=== PATIENT | female | born 1995 | race Caucasian/White ===

== ENCOUNTER → 2019-10-25 14:00 | Outpatient (CLI) | payer OTHER, MEDICAID, SELFPAY ==
--- NOTE | 2019-10-25 14:11 | DI.US.S_ITS ---
PROCEDURE: US OB >= 14 WEEKS FETUS INDICATIONS: ANATOMY OUTSIDE/PRIOR DATING DATA: Last menstrual period (LMP): Not known. LMP-based estimated date of delivery (ANNA): Not applicable. First dating scan (date and location): 10/25/19. Estimated date of delivery (ANNA) from first dating scan: 01/15/20. TECHNIQUE: Real-time scanning was performed of the fetus, with image documentation and biometric measurements. COMPARISON: None. FINDINGS: General: A single living intrauterine gestation is present. Presentation: Posterior Placenta: Placental position is vertex, without previa. Amniotic fluid index: 19.5 cm, normal range is 5-24 cm. heart rate: 133 beats per minute. Maternal cervical canal: 3.1 cm long. Normal lower limit is 2.5 cm. biometrics: Biparietal diameter: 27 weeks 6 days Head circumference: 20 weeks and 1 daily Abdominal circumference: 28 weeks 0 days Femur length: 28 weeks 6 days Estimated gestational age from initial scan: not applicable. Composite gestational age from present scan: 28 weeks 2 days Estimated weight and percentile: 1201 g; not applicable Measurement variability for biometric dating: +/- 7 days from 14 weeks to 15 weeks 6 days gestation, +/- 10 days from 16 weeks to 21 weeks 6 days gestation, +/- 2 weeks from 22 weeks to 27 weeks 6 days gestation, +/- 3 weeks for 28 weeks gestation or later. weight reference: 4500 g or EFW >90/95% is considered macrosomia or large for gestational age. EFW <10% is small for gestational age. EFW 5% or less is considered intra-uterine growth restriction. Anatomic survey: Neuro: Ventricles are non-dilated at less than 10 mm. Cisterna magna is normal at 3-11 mm. Cerebellum is normal in size and morphology. Nuchal skin fold: Normal at less than 6 mm between 14-21 weeks gestational age. Face: Nose and lips, facial profile are normal. Spine: No evidence for spina bifida. Heart: 4-chambered heart is present, with normal ventricular outflow tracts. Diaphragm: Diaphragm is intact. Stomach: Left-sided stomach is present. Kidneys: No hydronephrosis. Normal is less than 5 mm in 2nd trimester, less than 7 mm in 3rd trimester. Cord: 3-vessel cord has orthotopic insertion. Bladder: Normal in size. Extremities: All 4 extremities identified. IMPRESSION: 1. Single living intrauterine with ultrasound estimated gestational age of 28 weeks 2 days corresponding to ultrasound ANNA of 01/15/2020. 2. Normal anatomic survey. Dictated by: Marilee Anaya MD, PhD on 10/25/2019 at 15:45 Approved by: Marilee Anaya MD, PhD on 10/25/2019 at 15:47
== END ==
PROVIDERS: Visit Provider Family Medicine
DX: Z36.89 Encounter for other specified antenatal screening (principal); Z3A.28 28 weeks gestation of pregnancy
CPT/HCPCS: 76811

== ENCOUNTER → 2019-11-02 08:08 | Outpatient (CLI) | payer OTHER, MEDICAID, SELFPAY ==
[2019-11-02 10:06] LABS: Appearance Urine UA CLEAR; Bilirubin Urine UA NEGATIVE (NEGATIVE); Color Urine UA YELLOW; Glucose Urine UA NEGATIVE (Negative); Ketones Urine UA 1+ (NEGATIVE); Leukocyte Esterase Urine UA NEGATIVE (NEGATIVE); Nitrite Urine UA NEGATIVE (Negative); Occult Blood Urine UA NEGATIVE (Negative); Protein Urine UA TRACE (Negative); Specific Gravity Urine UA 1.025 (1.000-1.035); Urobilinogen Urine UA 0.2 E.U./dL (0.2)
[2019-11-02 10:08] LABS: pH Urine UA 6.5 (4.5-8.0)
[2019-11-02 10:19] LABS: Add Manual Diff / Slide Review NO; Basophils Absolute Auto 0 /uL (0-100); Basophils Percent Auto 0.4 % (0-2); Eosinophils Absolute Auto 100 /uL (0-450); Eosinophils Percent Auto 1.1 % (2-4); Hematocrit 34.6 % (36-46); Hemoglobin 11.6 g/dL (12.0-16.0); Lymphocytes Absolute Auto 1800 /uL (1100-4500); Lymphocytes Percent Auto 18.5 % (25-40); Mean Corpuscular HGB Conc 33.4 % (30-36); Mean Corpuscular Hemoglobin 27.2 PG (26-34); Mean Corpuscular Volume 81.2 fL (80-100); Monocytes Absolute Auto 700 /uL (0-900); Monocytes Percent Auto 6.8 % (3-14); Neutrophils Absolute Auto 7300 /uL (1500-7000); Neutrophils Percent Auto 73.2 % (50-75); Platelet Count 272 X10^3/uL (150-400); Red Blood Cell Count 4.26 X10^6/uL (4.0-5.2); Red Cell Distribution Width 15.1 % (11.6-14.8); White Blood Cell Count 9.9 X10^3/uL (4.5-11.0)
[2019-11-02 10:35] LABS: GTT (PREG) 1 Hour PP 50gm Dose 130 mg/dL (76-139)
[2019-11-02 11:09] LABS: Hepatitis B Surface Antigen NEGATIVE s/c (NEGATIVE); Rubella Antibody IgG 16.9 IU/mL (>15)
[2019-11-02 11:24] LABS: HIV 1 & 2 Ab/Ag 4th Gen Combo NEGATIVE (NEGATIVE); Hep C Virus Ab w/Reflex Quant NEGATIVE s/c (NEGATIVE)
[2019-11-03 18:00] LABS: RPR Screen Nonreactive (Nonreactive)
== END ==
PROVIDERS: PCP Family Medicine; Visit Provider Family Medicine
DX: Z34.03 Encounter for supervision of normal first pregnancy, third trimester (principal); Z3A.28 28 weeks gestation of pregnancy
CPT/HCPCS: 36415; 80055; 81003; 82950; 86787; 86803; 86850; 86900; 86901; 87086; 87389

== ENCOUNTER → 2019-12-07 12:19 | Outpatient (CLI) | payer OTHER, MEDICAID, SELFPAY ==
[2019-12-07 16:47] LABS: Urine N gonorrhoeae NOT DETECTED
[2019-12-07 16:56] LABS: Urine Chlamydia NOT DETECTED
== END ==
PROVIDERS: PCP Family Medicine; Visit Provider Family Medicine
DX: Z11.3 Encounter for screening for infections with a predominantly sexual mode of transmission (principal); Z11.8 Encounter for screening for other infectious and parasitic diseases; Z34.03 Encounter for supervision of normal first pregnancy, third trimester; Z3A.34 34 weeks gestation of pregnancy
CPT/HCPCS: 87086; 87491; 87591

== ENCOUNTER → 2019-12-21 11:39 | Outpatient (CLI) | payer OTHER, MEDICAID, SELFPAY ==
[2019-12-22 14:55] LABS: Strep Grp B PCR NEG for Grp B Strep
== END ==
PROVIDERS: PCP Family Medicine; Visit Provider Family Medicine
DX: Z34.03 Encounter for supervision of normal first pregnancy, third trimester (principal); Z3A.36 36 weeks gestation of pregnancy
CPT/HCPCS: 87653

== ENCOUNTER 2020-01-05 15:14 | Emergency (ER) | payer OTHER, MEDICAID, SELFPAY ==
[2020-01-05 15:28] VITALS: BP 197/94; PULSE 84; RESP 18; TEMP 37; O2SAT 99; BMI 45.2
--- NOTE | 2020-01-05 15:47 | ED_ITS ---
HPI - Wound/Laceration General Chief Complaint: Wound/Laceration Stated Complaint: right knee wound from a fall. Time Seen by Provider: 01/05/20 15:18 Source: patient Mode of arrival: Family Vehicle Limitations: no limitations History of Present Illness HPI narrative: 24-year-old female here for evaluation of a laceration to her right knee. She was hiking where she tripped and fell forward landing on her right knee. There was no loss of consciousness. They went to arrange or station. Topical antibiotic ointment was placed over the wound she was brought to the emergency department. She is in her 3rd trimester . Did not hit her belly. No loss of fluid. No vaginal bleeding. Is up-to-date on tetanus. Related Data Home Medications Medication Instructions Recorded Confirmed prenat.vits,erwin,[id number] 1 tab PO DAILY 10/25/19 01/04/20 Allergies Allergy/AdvReac Type Severity Reaction Status Date / Time bee stings Allergy Intermediate Major Uncoded 01/05/20 15:33 swelling and pain for days Review of Systems Constitutional Constitutional: Denies fever(s) and Denies headache(s) ENT Ears, Nose, Mouth, and Throat: Denies headache(s) and Denies disequilibrium Musculoskeletal Musculoskeletal: Denies myalgias and Denies arthralgias Integumentary/Breasts Comments: Laceration to right knee Neurologic Neurologic: Denies headache(s), Denies paresthesias and Denies disequilibrium Hematologic/Lymphatic Hematologic/Lymphatic: Denies easy bleeding and Denies easy bruising Patient History Medical History Carpal tunnel syndrome, bilateral (Acute ~2016) Migraine (Acute) Social anxiety disorder (Acute) Family History (Updated 10/25/19 @ 15:49 by Briseyda Olvera RN) Father Appendicitis PTSD (post-traumatic stress disorder) Grandfather Diabetes mellitus Grandmother No problems noted. Grandmother No problems noted. 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[employer]) current occupational exposures/hazards: No special renetta needs: No Smoking Status: Never smoker second hand exposure: Yes (co-workers ) alcohol intake: former ( 1-2 /week) substance use type: does not use and marijuana (some marijuana ) Smoking Status: Never smoker alcohol intake frequency: 0-2 drinks per day Substance Use Type: does not use Exam Initial Vital Signs Initial Vital Signs: Vital Signs Temperature 98.6 F 01/05/20 15:28 Pulse Rate 84 01/05/20 15:28 Respiratory Rate 18 01/05/20 15:28 Blood Pressure 197/94 H 01/05/20 15:28 Pulse Oximetry 99 01/05/20 15:28 Const General: cooperative, comfortable, well developed and well groomed Limitations: mental status not altered HENMT Head: normal to inspection and normocephalic Skin Other: Minor abrasions to the left knee. Has a 5 cm laceration just distal to the left patella midline. No active bleeding Extrem Other: Full range of motion of the right knee. Patient able to do a straight leg raise. No patella tendon involvement with range of motion of the right knee through flexion and extension. Psych Appearance: grossly normal and well kempt Procedures Laceration Repair Laceration 1: Site: lower extremity Side (If applicable): right Size (cm): 5 Description: linear Depth: simple, single layer Local Anesthetic: lidocaine 2% Amount of anesthesia used (mL): 8 Pre-repair: wound explored, irrigated extensively and deep structures intact Skin layer closed with: nylon Size (cm): 3-0 Number of sutures: 7 Technique: simple, interrupted Course Orders Ordered: Discontinued Medications Bacitracin (Bacitracin) 1 applic TOP NOW ONE Stop: 01/05/20 15:47 Last Admin: 01/05/20 15:54 Dose: 1 applic Documented by: DIETER Lidocaine/Sodium Bicarbonate (Buffered Lidocaine 10 Ml Syr) 10 ml INJ NOW ONE Stop: 01/05/20 15:24 Last Admin: 01/05/20 15:54 Dose: 10 ml Documented by: DIETER Vital Signs Vital signs: Vital Signs - 8 hr 01/05/20 15:28 01/05/20 16:19 Temperature 98.6 F Pulse Rate 84 83 Respiratory Rate 18 18 Blood Pressure 197/94 H Blood Pressure [Right Arm] 168/83 H Pulse Oximetry 99 100 MDM - Wound/Laceration MDM Narrative Medical decision making narrative: She is neurovascularly intact. The wound was superficial in does not involve the patella tendon. It was contaminated with dirt however this was removed with extensive washing with a surgical sponge and soap. Patient is up-to-date on tetanus. Wound was closed as described above. She was placed in an Giuseppe bandage because the location and the stress placed on the stitches. She was given care instructions and return precautions. She expressed understanding and agreement. Patient found to be hypertensive. Unsure if this is secondary to preeclampsia given her gestational age versus stress from the situation that brought her to the emergency department. I did discuss the case with who is supervisor agricultural education from the patient's primary provider recommended sending the patient over to the Center for continued evaluation. I did discuss this with the patient. She will be discharged from the emergency department symptom the Center. She expressed understanding and agreement. Discharge Plan Departure Patient Disposition: Home Clinical Impression: Laceration Qualifiers: Weeks of gestation: 39 weeks Qualified Code(s): Z3A.39 - 39 weeks gestation of Hypertension Qualifiers: Hypertension type: unspecified Qualified Code(s): I10 - Essential (primary) hypertension Discharge Date/Time: 01/05/20 16:24 Instructions: DI for Laceration Repair Activity Restrictions/Additional Instructions: Leave the bandage on for the next 24 hours. After that you can take the bandage off. Use the Giuseppe bandage to remind you not to excessively bend her knee has this will place strain on the stitches. After 24 hours you can shower like normal. You can use soap and water like normal. I did discuss the case with the on-call OB provider who recommended that you be discharged from the emergency department and go to the Center for further evaluation of your high blood pressure. Prescriptions: No Action prenat.vits,erwin,[id number] Tablet 1 tab PO DAILY RF: 0 Referrals: Chirs Man MD [Primary Care Provider] - ED Sign-out Cosign ED Attending Cosignature Attestation: I was immediately available in the department for consultation. This documentation has been reviewed and I agree with assessment and plan. Supervised by Jorge Dukes DO
[2020-01-05] MEDS: BACITRACIN OINT 0.9 GM PCKT 1 APPLIC TOP (15:54)
[2020-01-05] MEDS: LIDO 1%/SOD BICARB 8.4% (10ML) 10 ML SYRINGE INJ (15:54)
[2020-01-05 16:19] VITALS: BP 168/83; PULSE 83; RESP 18; O2SAT 100
--- NOTE | 2020-01-05 16:22 | PC.NURSE ---
Pt DC from ED and sent to Center for eval of HTN
== END 2020-01-05 16:24 | disposition home or self-care (01) ==
PROVIDERS: Emergency Provider Emergency Medicine; PCP Family Medicine
DX: S81.011A Laceration without foreign body, right knee, initial encounter (principal); I10 Essential (primary) hypertension; Z3A.39 39 weeks gestation of pregnancy; W19.XXXA Unspecified fall, initial encounter

== ENCOUNTER 2020-01-05 16:21 | Inpatient (IN) | payer OTHER, MEDICAID, SELFPAY ==
[2020-01-05 17:02] LABS: Add Manual Diff / Slide Review NO; Basophils Absolute Auto 100 /uL (0-100); Basophils Percent Auto 0.5 % (0-2); Eosinophils Absolute Auto 100 /uL (0-450); Eosinophils Percent Auto 0.8 % (2-4); Hematocrit 36.7 % (36-46); Hemoglobin 11.9 g/dL (12.0-16.0); Lymphocytes Absolute Auto 2500 /uL (1100-4500); Lymphocytes Percent Auto 21.1 % (25-40); Mean Corpuscular HGB Conc 32.5 % (30-36); Mean Corpuscular Hemoglobin 26.5 PG (26-34); Mean Corpuscular Volume 81.6 fL (80-100); Monocytes Absolute Auto 900 /uL (0-900); Monocytes Percent Auto 7.2 % (3-14); Neutrophils Absolute Auto 8400 /uL (1500-7000); Neutrophils Percent Auto 70.4 % (50-75); Platelet Count 227 X10^3/uL (150-400); Red Cell Distribution Width 15.5 % (11.6-14.8); White Blood Cell Count 11.9 X10^3/uL (4.5-11.0)
[2020-01-05 17:12] LABS: Aspartate Aminotransferase 42 IU/L (14-36); BUN Creatinine Ratio 22.8 (6-22); Blood Urea Nitrogen 18 mg/dL (7-17); Estimated Glomerular Filt Rate > 60.0 mL/min (>60); Uric Acid 6.6 mg/dL (2.5-6.2)
[2020-01-05 18:13] LABS: Microalbumi Creatinin Ratio Ur 2168.4 ug/mg CR (<30)
--- NOTE | 2020-01-05 20:01 | P.HPOB_ITS ---
OB HPI History of Present Condition Chief complaint: EVAL OF LABOR Narrative: 24-year-old G1 para 0 estimated due date of 01/12/2020 with LMP and 01/15/2020 with ultrasound at 20 weeks puts her at 39 weeks gestational age. Patient care complicated by late care at approximately 30 weeks struggles with social anxiety. Aftercare initiated 30 weeks patient had routine and close follow-up. Patient has had mildly elevated blood pressure during the low 130s. She has had no significant protein in her urea or signs of headache blurry vision or right upper quadrant pain. This evening patient park walking patient fell and injured her knee requiring sutures and went to the emergency department. During the emergency department visit patient was noted to have elevated blood pressure. Her knee was sutured on the right and was sent to the center for further evaluation. On evaluation of the center patient's blood pressure has been high. Patient does not complaining of any symptoms of headache blurry vision right upper quadrant pain. Patient's blood work showed normal white blood cell count hemoglobin 11.9 hematocrit 36.7 platelet count 227. BUN 18 creatinine 0.79 uric acid 6.6 elevated and AST 42 elevated urine shows 3.99 mg of protein on urine spot. Initial blood work showed serum VDRL nonreactive urine GC chlamydia negative hepatitis-B surface antigen negative hepatitis C negative HIV negative rubella immune varicella immune GBS negative blood type is A positive. Patient has a history of social anxiety disorder. No history of high blood pressure asthma or diabetes she is obese. Family history of PTSD T and diabetes Social history she is she does not currently smoke tobacco occasionally uses marijuana does not currently use alcohol during Evaluation Evaluation Laboratory results: Laboratory Tests 01/05/20 01/05/20 01/05/20 16:50 16:50 Unknown WBC 11.9 H RBC 4.50 Hgb 11.9 L Hct 36.7 MCV 81.6 MCH 26.5 MCHC 32.5 RDW 15.5 H Plt Count 227 Neut % (Auto) 70.4 Lymph % (Auto) 21.1 L [place] % (Auto) 7.2 Eos % (Auto) 0.8 L Baso % (Auto) 0.5 Neut # (Auto) 8400 H Lymph # (Auto) 2500 [place] # (Auto) 900 Eos # (Auto) 100 Baso # (Auto) 100 BUN 18 H Creatinine 0.79 Estimated GFR > 60.0 BUN/Creatinine Ratio 22.8 H Uric Acid 6.6 H AST 42 H Ur Random Microalbumin 399.0 H Urine Creatinine 184.0 Microalb/Creat Ratio 2168.4 H [facility] Medical History Carpal tunnel syndrome, bilateral (Acute ~2016) Migraine (Acute) Social anxiety disorder (Acute) Family History Father Appendicitis PTSD (post-traumatic stress disorder) Grandfather Diabetes mellitus Grandmother No problems noted. Grandmother No problems noted. 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) current occupational exposures/hazards: No special renetta needs: No Smoking Status: Never smoker second hand exposure: Yes (co-workers ) alcohol intake: former ( 1-2 /week) substance use type: does not use and marijuana (some marijuana ) Meds Home Medications and Allergies Home Medications Medication Instructions Recorded Confirmed Type prenat.vits,erwin,[id number]-[id number] 1 tab PO DAILY 10/25/19 01/05/20 History Allergies Allergy/AdvReac Type Severity Reaction Status Date / Time bee stings Allergy Intermediate Major Uncoded 01/05/20 15:33 swelling and pain for days Exam Vital Signs (past 8 hours): . General: Alert no apparent distress. Affect is appropriate. Margarita it is uncomfortable. HEENT: Neck is supple without lymphadenopathy pupils equal round and reactive. Cardio: S1-S2 regular rate and rhythm. Respiratory: Lungs clear to auscultation. Abdomen: Gravid. Extremities: Normal deep tendon reflexes trace edema. [place]: Irregular contractions heart tones: Category 1 reactive strip heart rate average 140 Objective Labs Result Diagrams: 01/05/20 16:50 01/05/20 16:50 Labs: Laboratory Results - last 24 hr 01/05/20 01/05/20 01/05/20 16:50 16:50 Unknown WBC 11.9 H RBC 4.50 Hgb 11.9 L Hct 36.7 MCV 81.6 MCH 26.5 MCHC 32.5 RDW 15.5 H Plt Count 227 Neut % (Auto) 70.4 Lymph % (Auto) 21.1 L [place] % (Auto) 7.2 Eos % (Auto) 0.8 L Baso % (Auto) 0.5 Neut # (Auto) 8400 H Lymph # (Auto) 2500 [place] # (Auto) 900 Eos # (Auto) 100 Baso # (Auto) 100 BUN 18 H Creatinine 0.79 Estimated GFR > 60.0 BUN/Creatinine Ratio 22.8 H Uric Acid 6.6 H AST 42 H Ur Random Microalbumin 399.0 H Urine Creatinine 184.0 Microalb/Creat Ratio 2168.4 H Assessment and Plan Assessment and Plan Assessment and Plan narrative: 24-year-old G1 para 0 39 weeks gestational age with preeclampsia moderate. Patient has elevated uric acid elevated AST elevated blood pressure and protein in her urine patient has no symptoms currently of blurry vision right upper quadrant pain headache and no seizures. Patient has normal platelet count normal hemoglobin and hematocrit normal creatinine. Discussed case with OB care physician on-call Dr. Chao. Reviewed current management recommendations. I elected to not start patient on magnesium at this point. Start IV. Provide IV blood pressure control starting with 10 mg labetalol and then 200 mg of labetalol orally 3 times a day. Provide fentanyl for pain control and relaxation. Her cervix would benefit with the use of Cytotec for induction but she is margarita too much so we will have to proceed with part Pitocin. Recommended starting Pitocin with the patient. To expedite delivery. We will started approximately 4:00 a.m. that will allow for the OR crew to be on standby if baby or patient does not tolerate labor induction.. And then monitor closely baby's progress. We will continue with it to her monitoring externally. We will monitor closely her blood pressure and vitals. Provide blood pressure control. Watch for signs symptoms of neurological defects or progression to eclampsia in mother.
[2020-01-05 20:27] VITALS: BP 190/93; PULSE 90
[2020-01-05] MEDS: LABETALOL 20 MG/4 ML SYRINGE 10 MG IV (20:27)
[2020-01-05 20:32] VITALS: BP 190/93
[2020-01-05 21:38] VITALS: BP 170/93; PULSE 86
[2020-01-05] MEDS: LABETALOL 100 MG TABLET 200 MG PO (21:38)
[2020-01-05] MEDS: fentaNYL 100 MCG/2 ML INJ 25 MCG IV (23:20)
[2020-01-05] MEDS: ACETAMINOPHEN 325 MG TABLET 650 MG PO (23:21)
[2020-01-06] MEDS: OXYTOCIN PREMIX 30 UNIT/500 ML PLAST..BAG IV (03:53)
[2020-01-06] MEDS: LACTATED RINGERS 1,000 ML 100 ML IV ×2 (03:53→13:25)
[2020-01-06] MEDS: fentaNYL 100 MCG/2 ML INJ 25 MCG IV (04:16)
--- NOTE | 2020-01-06 07:15 | PM.PN.1 ---
Subjective Subjective Date Patient Seen: 01/06/20 Time Patient Seen: 07:15 Interval history: Patient did well overnight. Given IV labetalol. And oral labetalol. Blood pressures come down to 11/18/2039. Patient has no symptoms of headache blurry vision right upper quadrant pain. Patient laboratory tests show proteinuria mild AST mild uric acid. Patient margarita too much last evening to do Cytotec. Category 1 heart tracing. Started on Pitocin augmentation of labor at 4:00 a.m. this morning. She is starting to contract a little bit and getting uncomfortable. At 4:00 a.m. cervical exam was 170 and -3. Reviewed treatment care plan with patient and been today. Exam Narrative Exam Narrative: . General: Alert no apparent distress. Affect is appropriate. Margarita it is uncomfortable. HEENT: Pupils equal round and reactive or mucosa is moist Cardio: S1-S2 regular rate and rhythm. Respiratory: Lungs clear to auscultation. Abdomen: Gravid. Extremities: Normal deep tendon reflexes trace edema. [place]: [Margarita regularly every 3-5 minutes with 60 minute contractions moderate and strength.] heart tones: Category 1 heart tracing Objective Labs Result Diagrams: 01/05/20 16:50 01/05/20 16:50 Labs: Laboratory Results - last 24 hr 01/05/20 01/05/20 01/05/20 16:50 16:50 20:30 WBC 11.9 H RBC 4.50 Hgb 11.9 L Hct 36.7 MCV 81.6 MCH 26.5 MCHC 32.5 RDW 15.5 H Plt Count 227 Neut % (Auto) 70.4 Lymph % (Auto) 21.1 L [place] % (Auto) 7.2 Eos % (Auto) 0.8 L Baso % (Auto) 0.5 Neut # (Auto) 8400 H Lymph # (Auto) 2500 [place] # (Auto) 900 Eos # (Auto) 100 Baso # (Auto) 100 BUN 18 H Creatinine 0.79 Estimated GFR > 60.0 BUN/Creatinine Ratio 22.8 H Uric Acid 6.6 H AST 42 H Ur Random Microalbumin Urine Creatinine Microalb/Creat Ratio Blood Type A Positive Antibody Screen Negative 01/05/20 Unknown WBC RBC Hgb Hct MCV MCH MCHC RDW Plt Count Neut % (Auto) Lymph % (Auto) [place] % (Auto) Eos % (Auto) Baso % (Auto) Neut # (Auto) Lymph # (Auto) [place] # (Auto) Eos # (Auto) Baso # (Auto) BUN Creatinine Estimated GFR BUN/Creatinine Ratio Uric Acid AST Ur Random Microalbumin 399.0 H Urine Creatinine 184.0 Microalb/Creat Ratio 2168.4 H Blood Type Antibody Screen Assessment & Plan Assessment & Plan narrative: 24-year-old G1 para 039 weeks late care THC use during GBS negative a positive with moderate preeclampsia with elevation of blood pressure elevation AST elevation uric acid and proteinuria. Patient asymptomatic with headache right upper quadrant pain and blurry vision. Patient margarita too much for Cytotec. Pitocin started 4:00 a.m. this morning. 70% effaced -3 station 1 cm. Category 1 heart tracing. IV labetalol given last night and oral labetalol 200 mg 3 times a day. Continue with ongoing induction. Care will be transferred to on-call physician today as I will be out of the hospital this afternoon.
[2020-01-06 08:52] VITALS: BP 143/76; PULSE 67
[2020-01-06] MEDS: LABETALOL 100 MG TABLET 200 MG PO ×3 (08:52→21:09)
[2020-01-06] MEDS: ACETAMINOPHEN 325 MG TABLET 650 MG PO ×3 (08:55→21:09)
--- NOTE | 2020-01-06 09:47 | PM.OBPNLAB ---
Date/Time Date Patient Seen: 01/06/20 Time Patient Seen: 09:40 Pain Control Pain control: tolerating well Comments: The patient reports mildly feeling the contractions now on the Pitocin, but not uncomfortable. She had received some fentanyl at 4:00 a.m.. Pelvic Exam Comments: not re-checked at this time Contractions Contractions on admission: regular Pitocin rate (mU/min): 7 Contraction intensity: Mild Status status: Category l Monitor Accelerations: Present Monitor Decelerations: Absent Monitor Variability: Moderate Comments: normal baseline Assessment and Plan Assessment: induction ongoing Plan: continuous present management Comments: Dr Nickerson reviewed patient with me and signed the patient off on-call at 0820. Patient is a 24-year-old G1 female who presented to the ED after a fall with a right knee laceration which was sutured. She was noted to have significantly elevated blood pressure in the ED, this persisted when she was subsequently brought to the Center. She has not had any headache, scotomata, nausea, emesis or abdominal pain. Reflexes were 2+. Lab showed a mildly elevated AST, elevated uric acid, normal platelets. Creatinine was 0.79. She was given IV labetalol, then scheduled oral labetalol was started. She was not started on magnesium sulfate at this time. Induction of labor was started with Pitocin since contractions were too frequent for cervical ripening. Continue Pitocin. Will gradually increase the Pitocin until patient more uncomfortable.
[2020-01-06 15:20] VITALS: BP 162/88; PULSE 64
[2020-01-06 15:22] VITALS: TEMP 36.8
--- NOTE | 2020-01-06 17:20 | PM.OBPNLAB ---
Date/Time Date Patient Seen: 01/06/20 Time Patient Seen: 17:20 Pain Control Pain control: tolerating well Comments: sleeping Pelvic Exam Dilation (cm): 1 Effacement (%): 70 station: -4 Amniotic membrane status: Intact Comments: vertex Contractions Contractions on admission: regular Pitocin rate (mU/min): 17 Contraction frequency (min): 4 Contraction pattern: Irregular Contraction intensity: Mild Status status: Category l Heart Rate Baseline: 135 Monitor Accelerations: Present Monitor Decelerations: Absent Monitor Variability: Moderate Comments: BPs today 130-140s/70-80s, highest 160/88 just prior to her scheduled labetalol dose. Repeat BP now 140/88 Assessment and Plan Assessment: induction ongoing Plan: other (Pitocin turned off. Will evaluate contraction pattern for cervical ripening later tonight. ) Comments: I had seen the patient at 1:30 p.m. as well, checked her cervix at that time and was 1.5/70%/-3 cervix mid position, vertex. I discussed with her at that time that sometimes induction may take a well and could take more than 1 day if she was not initially responsive to the Pitocin. Discussed since she was becoming mildly uncomfortable that time, that she certainly could kick into labor as well and would see how it goes over the next several hours. EFM has continued to be category 1 through the day and Pitocin was gradually increased. Discussed with patient now with exam none change and contractions becoming mild such that she could sleep the past 2 hours, no signs of labor at this time. Discussed I could continue Pitocin for few more hours, but I fell it is unlikely that she would progress in labor in the next few hours with the Pitocin. I recommended turning off the Pitocin at this time, let her eat after contractions spaced out, and then would recheck her later tonight to consider something for cervical ripening. I discussed with her there is medication or if contractions to frequent, mechanical methods for cervical ripening, balloon. She desire to have the Pitocin turned off at this time. She will order something for dinner. Will recheck her in 2-3 hours. Repeat labs ordered, CBC/CMP.
[2020-01-06 20:26] LABS: Hematocrit 37.3 % (36-46); Mean Corpuscular HGB Conc 32.1 % (30-36); Mean Corpuscular Hemoglobin 26.5 PG (26-34); Mean Corpuscular Volume 82.6 fL (80-100); Platelet Count 230 X10^3/uL (150-400); Red Blood Cell Count 4.52 X10^6/uL (4.0-5.2); Red Cell Distribution Width 15.9 % (11.6-14.8); White Blood Cell Count 12.2 X10^3/uL (4.5-11.0)
[2020-01-06 20:31] LABS: Alanine Aminotransferase 58 IU/L (<35); Albumin 3.6 g/dL (3.5-5.0); Alkaline Phosphatase 192 U/L (38-126); Aspartate Aminotransferase 82 IU/L (14-36); BUN Creatinine Ratio 16.7 (6-22); Bilirubin Total 0.8 mg/dL (0.2-1.3); Blood Urea Nitrogen 14 mg/dL (7-17); Calcium 9.2 mg/dL (8.4-10.2); Carbon Dioxide 23 mmol/L (22-32); Chloride 105 mmol/L (98-107); Estimated Glomerular Filt Rate > 60.0 mL/min (>60); Globulin 3.7 g/dL (1.7-4.1); Glucose 127 mg/dL (70-100); HEMOLYSIS < 15 (0-50); Potassium 3.9 mmol/L (3.4-5.1); Sodium 138 mmol/L (137-145); Total Protein 7.3 g/dL (6.3-8.2)
--- NOTE | 2020-01-06 21:07 | PM.PN.1 ---
Subjective Subjective Date Patient Seen: 01/06/20 Time Patient Seen: 20:45 Interval history: Patient reports she had a mild headache earlier today, relieved with Tylenol. Denies any current headache, scotomata, nausea, or abdominal pain. Only noticing an occasional contraction Exam Vital Signs (past 8 hours): - 01/06/20 15:20 01/06/20 15:22 Temperature 98.2 F Pulse Rate 64 Blood Pressure 162/88 H Narrative Exam Narrative: General: Well-appearing Abdomen gravid, nontender Extremities: 1+ edema. Below right knee bandage. Left patellar area with an ecchymosis (s/p fall) DTR: 2+, no clonus EFM: 140, moderate variability positive accelerations, no decelerations [place]: Rare contraction Objective Labs Result Diagrams: 01/06/20 20:14 01/06/20 20:14 Labs: Laboratory Results - last 24 hr 01/05/20 01/06/20 01/06/20 20:30 20:14 20:14 WBC 12.2 H RBC 4.52 Hgb 12.0 Hct 37.3 MCV 82.6 MCH 26.5 MCHC 32.1 RDW 15.9 H Plt Count 230 Sodium 138 Potassium 3.9 Chloride 105 Carbon Dioxide 23 BUN 14 Creatinine 0.84 Estimated GFR > 60.0 BUN/Creatinine Ratio 16.7 Glucose 127 H Calcium 9.2 Total Bilirubin 0.8 AST 82 H ALT 58 H Alkaline Phosphatase 192 H Total Protein 7.3 Albumin 3.6 Globulin 3.7 Albumin/Globulin Ratio 1.0 Blood Type A Positive Antibody Screen Negative Assessment & Plan Assessment & Plan narrative: 39 weeks with preeclampsia with severe features, increased elevation of her LFTs, platelets normal Plan: Will add magnesium sulfate for seizure prophylaxis. Cytotec 50 mcg po every 4 hours ordered for cervical ripening. Repeat labs in the morning
[2020-01-06] MEDS: MAGNESIUM SULFATE 4 GM/100 ML PIGGYBACK IV (21:09)
[2020-01-06] MEDS: MAGNESIUM SULFATE 20 GM/500 ML IV.SOLN IV (21:47)
[2020-01-06] MEDS: miSOPROStoL 25 MCG TABLET 50 MCG PO (22:22)
[2020-01-07] MEDS: miSOPROStoL 25 MCG TABLET 50 MCG PO (02:24)
[2020-01-07] MEDS: LACTATED RINGERS 1,000 ML 100 ML IV ×2 (03:35→13:48)
[2020-01-07] MEDS: ACETAMINOPHEN 325 MG TABLET 650 MG PO (07:05)
[2020-01-07] MEDS: MAGNESIUM SULFATE 20 GM/500 ML IV.SOLN IV ×2 (07:47→17:53)
[2020-01-07] MEDS: LABETALOL 100 MG TABLET 200 MG PO ×2 (08:41→15:20)
--- NOTE | 2020-01-07 08:42 | PM.PN.1 ---
Subjective Subjective Date Patient Seen: 01/07/20 Time Patient Seen: 08:25 Interval history: Summer reports sleeping well. Denies headache, scotomata, nausea or abdominal pain. Only feels some mild discomfort in upper abdomen when contraction comes. Reports in general not feeling the contractions. Objective Labs Result Diagrams: 01/06/20 20:14 01/06/20 20:14 Labs: Laboratory Results - last 24 hr 01/06/20 01/06/20 20:14 20:14 WBC 12.2 H RBC 4.52 Hgb 12.0 Hct 37.3 MCV 82.6 MCH 26.5 MCHC 32.1 RDW 15.9 H Plt Count 230 Sodium 138 Potassium 3.9 Chloride 105 Carbon Dioxide 23 BUN 14 Creatinine 0.84 Estimated GFR > 60.0 BUN/Creatinine Ratio 16.7 Glucose 127 H Calcium 9.2 Total Bilirubin 0.8 AST 82 H ALT 58 H Alkaline Phosphatase 192 H Total Protein 7.3 Albumin 3.6 Globulin 3.7 Albumin/Globulin Ratio 1.0
[2020-01-07 08:48] LABS: Add Manual Diff / Slide Review NO; Basophils Absolute Auto 100 /uL (0-100); Basophils Percent Auto 0.5 % (0-2); Eosinophils Absolute Auto 200 /uL (0-450); Eosinophils Percent Auto 1.6 % (2-4); Hematocrit 36.3 % (36-46); Hemoglobin 11.9 g/dL (12.0-16.0); Lymphocytes Absolute Auto 2100 /uL (1100-4500); Lymphocytes Percent Auto 21.2 % (25-40); Mean Corpuscular HGB Conc 32.7 % (30-36); Mean Corpuscular Hemoglobin 26.8 PG (26-34); Mean Corpuscular Volume 81.8 fL (80-100); Monocytes Absolute Auto 800 /uL (0-900); Neutrophils Absolute Auto 6700 /uL (1500-7000); Neutrophils Percent Auto 68.7 % (50-75); Platelet Count 216 X10^3/uL (150-400); Red Blood Cell Count 4.44 X10^6/uL (4.0-5.2); Red Cell Distribution Width 15.8 % (11.6-14.8); White Blood Cell Count 9.8 X10^3/uL (4.5-11.0)
[2020-01-07 08:58] LABS: Alanine Aminotransferase 58 IU/L (<35); Albumin 3.5 g/dL (3.5-5.0); Alkaline Phosphatase 230 U/L (38-126); Aspartate Aminotransferase 67 IU/L (14-36); BUN Creatinine Ratio 16.2 (6-22); Bilirubin Total 0.6 mg/dL (0.2-1.3); Blood Urea Nitrogen 12 mg/dL (7-17); Calcium 8.4 mg/dL (8.4-10.2); Carbon Dioxide 21 mmol/L (22-32); Chloride 106 mmol/L (98-107); Estimated Glomerular Filt Rate > 60.0 mL/min (>60); Globulin 3.6 g/dL (1.7-4.1); Glucose 91 mg/dL (70-100); HEMOLYSIS < 15 (0-50); Potassium 4.1 mmol/L (3.4-5.1); Sodium 134 mmol/L (137-145); Total Protein 7.1 g/dL (6.3-8.2)
[2020-01-07] MEDS: OXYTOCIN PREMIX 30 UNIT/500 ML PLAST..BAG IV (09:00)
--- NOTE | 2020-01-07 09:08 | P.PN_ITS ---
Subjective Subjective Date Patient Seen: 01/07/20 Time Patient Seen: 08:20 Interval history: Summer reports sleeping well. Denies headache, scotomata, nausea or abdominal pain. Only feels some mild discomfort in upper abdomen when contraction comes. Reports in general not feeling the contractions. Exam Vital Signs (past 8 hours): Afebrile, BP 135-156 /70-83 overnight. Last BP 156/75 pulse 71, pulse ox 96% on room air Narrative Exam Narrative: General: Well-appearing female, no acute distress Abdomen: Gravid, nontender. No right upper quadrant or epigastric tenderness Extremities: 1+ pedal edema DTR 2+ patellar, 1+ biceps Cervix: 2/80/-3 EFM: Baseline 120, moderate variability, positive for accelerations, reactive, no decelerations. Cat 1 [place]: Contractions every 5-6 minutes Objective Labs Result Diagrams: 01/07/20 08:36 01/06/20 20:14 Labs: Laboratory Results - last 24 hr 01/06/20 01/06/20 01/07/20 20:14 20:14 08:36 WBC 12.2 H 9.8 RBC 4.52 4.44 Hgb 12.0 11.9 L Hct 37.3 36.3 MCV 82.6 81.8 MCH 26.5 26.8 MCHC 32.1 32.7 RDW 15.9 H 15.8 H Plt Count 230 216 Neut % (Auto) 68.7 Lymph % (Auto) 21.2 L [place] % (Auto) 8.0 Eos % (Auto) 1.6 L Baso % (Auto) 0.5 Neut # (Auto) 6700 Lymph # (Auto) 2100 [place] # (Auto) 800 Eos # (Auto) 200 Baso # (Auto) 100 Sodium 138 Potassium 3.9 Chloride 105 Carbon Dioxide 23 BUN 14 Creatinine 0.84 Estimated GFR > 60.0 BUN/Creatinine Ratio 16.7 Glucose 127 H Calcium 9.2 Total Bilirubin 0.8 AST 82 H ALT 58 H Alkaline Phosphatase 192 H Total Protein 7.3 Albumin 3.6 Globulin 3.7 Albumin/Globulin Ratio 1.0 Assessment & Plan Assessment and plan (1) Preeclampsia: Current visit: Yes Status: Acute Assessment & Plan narrative: 39 weeks EGA, Preeclampsia with severe features, GBS negative Plan: Continue magnesium sulfate. Cervix more favorable, we will restart Pitocin this a.m. Platelets stable on repeat a.m. labs, CMP pending
--- NOTE | 2020-01-07 13:47 | PM.OBPNLAB ---
Date/Time Date Patient Seen: 01/07/20 Time Patient Seen: 13:40 Pain Control Pain control: tolerating well Comments: Patient had SROM of clear fluid at approximately 1:00 p.m. RN check of cervix at that time was 7 cm. Pt coping well with the contractions. Pelvic Exam Dilation (cm): 7 station: -2 Amniotic membrane status: Ruptured (clear at 1300. cervbical exam at 1300 by RN) Contractions Contractions on admission: regular Monitor mode: External Pitocin rate (mU/min): 7 Contraction frequency (min): 4 Contraction pattern: Regular Contraction intensity: Moderate Status status: Category l Heart Rate Baseline: 120 Monitor Accelerations: Present Monitor Decelerations: Absent Monitor Variability: Moderate Assessment and Plan Assessment: induction ongoing and other (labor) Plan: continuous present management Comments:
[2020-01-07] MEDS: fentaNYL 100 MCG/2 ML INJ 25 MCG IV (14:53)
--- NOTE | 2020-01-07 15:09 | PM.AN.REGBLK ---
[facility] <Andres Adair, DO - Last Filed: 01/07/20 22:14> Pre-procedure Procedure: Continuous Lumbar Epidural for L&D Attending OB provider: Lashay Herman PM/ROS narrative: term labor, complicated by pre-ecclampsia. Platelets normal, mildly elevated LFT's, protienuria, on labetolol starting this week, magnesium Hx: No personal or family history of anesthesia problems. ASA Class: III Labs: Hct 36.3 % (36-46) 01/07/20 08:36 Plt Count 216 X10^3/uL (150-400) 01/07/20 08:36 Medications: Current Medications Generic Name Dose Route Start Last Admin Trade Name Freq PRN Reason Stop Dose Admin Acetaminophen 650 mg 01/05/20 21:38 01/07/20 07:05 Tylenol PO 650 mg Q6HR PRN Administration Fever/Mild Pain (1-3) Diphenhydramine HCl 25 mg 01/07/20 15:05 Benadryl IV Q10M PRN Pruritis Fentanyl 25 mcg 01/05/20 19:51 01/07/20 14:53 Sublimaze IV 25 mcg Q2H PRN Administration Pain, Moderate (4-6) Lactated Ringer's 1,000 mls @ 100 mls/hr 01/05/20 20:00 01/07/20 13:48 Lactated Ringers IV 100 mls/hr CONT FLORY Administration Lactated Ringer's 1,000 mls @ 125 mls/hr 01/05/20 20:00 Lactated Ringers IV CONT FLORY Magnesium Sulfate 20 gm in 500 mls @ 50 mls/hr 01/06/20 21:00 01/07/20 07:47 Magnesium Sulfate IV 50 mls/hr CONT FLORY Administration Oxytocin/Lactated Ringer's 30 unit in 500 mls @ 2 mls/hr 01/07/20 08:41 01/07/20 09:00 Oxytocin Premix IV 2 milliunit/min TITRATE FLORY 2 mls/hr Administration Protocol 2 MILLIUNIT/MIN Lactated Ringer's 1,000 mls @ 100 mls/hr 01/07/20 15:15 Lactated Ringers IV CONT FLORY FENT 2MCG/ML BUPIV 0.125% EPI 200 mcg in 100 mls @ 0 mls/hr 01/07/20 15:15 Fentanyl/Bupiv/Ns 2mcg/Ml - 0.125% EPIDURAL CONT FLORY As Directed Labetalol HCl 200 mg 01/05/20 21:00 01/07/20 08:41 Trandate PO 200 mg TID FLORY Administration Ondansetron HCl 4 mg 01/05/20 19:48 Zofran IV Q4HR PRN Nausea And Vomiting Zolpidem Tartrate 10 mg 01/05/20 19:48 Ambien PO BEDTIME PRN Sleep Allergies: Allergies Allergy/AdvReac Type Severity Reaction Status Date / Time bee stings Allergy Intermediate Major Uncoded 01/05/20 15:33 swelling and pain for days Procedure Insertion date: 01/07/20 Insertion time: 15:55 Prep/Local: betadine x3 Interspace: L3-4 Patient position: sitting Needle: 18 gauge Hustead (CSE: 27g [place] through Hustead, clear CSF, 0.5mL 0.25% bupiv MPF spinal dose) Loss of resistance with: saline MATTHEW at (cm): 9 Catheter placed at SKIN (cm): 15 Catheter in SPACE (cm): 6 Initial Medications TEST DOSE time: 16:01 TEST DOSE: 1.5% lidocaine with epinephrine 1:200k (mL): 3 BOLUS DOSE time: 16:15 BOLUS DOSE (mL): 3 BOLUS DOSE med: 0.125% bupivacaine with fentanyl 10 mcg/mL Infusion INFUSION: 0.125% bupivacaine and with fentanyl 2 mcg/mL Initial rate (mL/hr): 8 Subsequent interventions: rate reduced to 3mL/h d/t decelerations approx. 30min post epidural placement. rate subsequently increased to 6, comfortable, delivered without complication Post-procedure Anesthesia time START: 15:43 Anesthesia time END: 21:19 Post-procedure Anesthesia Assessment: Yes CV function: HR/BP stable, Yes Resp function: RR/sat/airway adequate, Yes Post-op hydration adequate, Yes Pain control adequate, Yes Nausea & vomiting absent and Yes Mental status appropriate
--- NOTE | 2020-01-07 15:10 | PM.OBPNLAB ---
Date/Time Date Patient Seen: 01/07/20 Time Patient Seen: 15:02 Pain Control Pain control: narcotic analgesia Comments: Patient becoming more uncomfortable with the contractions. Initially desired fentanyl, then decided she desires an epidural. Pelvic Exam Dilation (cm): 4 Effacement (%): 100 station: -3 Amniotic membrane status: Ruptured (clear at 1300. cervbical exam at 1300 by RN) Comments: Exam performed by me. Contractions Monitor mode: External Pitocin rate (mU/min): 10 Contraction frequency (min): 3 Contraction pattern: Regular Contraction intensity: Moderate Status status: Category l Heart Rate Baseline: 120 Monitor Accelerations: Present Monitor Decelerations: Absent Monitor Variability: Moderate Assessment and Plan Assessment: induction ongoing Plan: continuous present management Comments: Will the the Pitocin steady at 10 milliunits per minute currently, as appears in labor. Will recheck cervix in 2-3 hours Fentanyl for discomfort pending epidural. I spoke with the anesthesiologist who will be available in about 1 hour less, current attending another patient in OR. Discussed patient with preeclampsia, to consider for gentle epidural bolus. Also after discussion will only bolus her IV fluids 500 mL prior to the epidural.
[2020-01-07 15:20] VITALS: BP 148/76
--- NOTE | 2020-01-07 17:10 | PM.PN.1 ---
Subjective Subjective Date Patient Seen: 01/07/20 Time Patient Seen: 17:00 Interval history: Called with report FHR with recurrence late decelerations after epidural. On inquiry her BP was 90/50s. Patient does feel somewhat foggy in her vision, no significant lightheadedness, no nausea Exam Vital Signs (past 8 hours): - BP post epidural 94/50-100s/50s. 01/07/20 15:20 Blood Pressure 148/76 H Narrative Exam Narrative: General: well appearing. NAD. Cervix: 6/90/-3 EFM 120s baseline. Repetitive severe late decelerations after the epidural with BP drop. Four severe late decelerations with then decreased baseline variability. O2 applied. With position change to her right side, gradual resolution to subtle late decelerations. Pitocin turned off. BP persisted between 90-100s/50s. Epidural turned down from 8 to 4. Since her urine output had been good, an additional 500 mL IV fluid bolus given with LR, as would prefer to avoid ephedrine if able, with the preeclampsia. Severe deceleration remain resolved, but subtle late deceleration persisted, then FHR had 2 moderate late decels. Position changed to her left side, and only intermittent subtle late decels. Contractions had been every 2-1/2 to 3 minutes. Now q 3 1/2 - 4 1/2 minutes at 1755. Objective Labs Result Diagrams: 01/07/20 08:36 01/07/20 08:36 Labs: Laboratory Results - last 24 hr 01/06/20 01/06/20 01/07/20 20:14 20:14 08:36 WBC 12.2 H 9.8 RBC 4.52 4.44 Hgb 12.0 11.9 L Hct 37.3 36.3 MCV 82.6 81.8 MCH 26.5 26.8 MCHC 32.1 32.7 RDW 15.9 H 15.8 H Plt Count 230 216 Neut % (Auto) 68.7 Lymph % (Auto) 21.2 L [place] % (Auto) 8.0 Eos % (Auto) 1.6 L Baso % (Auto) 0.5 Neut # (Auto) 6700 Lymph # (Auto) 2100 [place] # (Auto) 800 Eos # (Auto) 200 Baso # (Auto) 100 Sodium 138 Potassium 3.9 Chloride 105 Carbon Dioxide 23 BUN 14 Creatinine 0.84 Estimated GFR > 60.0 BUN/Creatinine Ratio 16.7 Glucose 127 H Calcium 9.2 Magnesium Total Bilirubin 0.8 AST 82 H ALT 58 H Alkaline Phosphatase 192 H Total Protein 7.3 Albumin 3.6 Globulin 3.7 Albumin/Globulin Ratio 1.0 01/07/20 08:36 WBC RBC Hgb Hct MCV MCH MCHC RDW Plt Count Neut % (Auto) Lymph % (Auto) [place] % (Auto) Eos % (Auto) Baso % (Auto) Neut # (Auto) Lymph # (Auto) [place] # (Auto) Eos # (Auto) Baso # (Auto) Sodium 134 L Potassium 4.1 Chloride 106 Carbon Dioxide 21 L BUN 12 Creatinine 0.74 Estimated GFR > 60.0 BUN/Creatinine Ratio 16.2 Glucose 91 Calcium 8.4 Magnesium 6.0 H* Total Bilirubin 0.6 AST 67 H ALT 58 H Alkaline Phosphatase 230 H Total Protein 7.1 Albumin 3.5 Globulin 3.6 Albumin/Globulin Ratio 1.0 Assessment & Plan Assessment & Plan narrative: Cat 2 EFM with repetitive late decelerations after BP drop post epidural. Currently improved to occasional subtle late deceleration. Pitocin is off. Epidural turned down from 8 to 4. Will observe for resolution and restart Pitocin later if able.
[2020-01-07 23:04] LABS: Hematocrit 31.3 % (36-46); Hemoglobin 10.1 g/dL (12.0-16.0); Mean Corpuscular HGB Conc 32.3 % (30-36); Mean Corpuscular Hemoglobin 26.7 PG (26-34); Mean Corpuscular Volume 82.8 fL (80-100); Platelet Count 219 X10^3/uL (150-400); Red Blood Cell Count 3.78 X10^6/uL (4.0-5.2); Red Cell Distribution Width 16.1 % (11.6-14.8); White Blood Cell Count 16.8 X10^3/uL (4.5-11.0)
[2020-01-07 23:10] LABS: INR 0.9 (0.9-1.3); Prothrombin Time 10.2 SECONDS (10.1-12.7)
[2020-01-07 23:13] LABS: PTT Partial Thromboplastin Tim 28 SECONDS (26.4-36.2)
[2020-01-07 23:15] LABS: Magnesium 7.2 mg/dL (1.6-2.3)
--- NOTE | 2020-01-07 23:31 | PM.OBPNLAB ---
Date/Time Date Patient Seen: 01/07/20 Time Patient Seen: 19:15 Pain Control Pain control: epidural Pelvic Exam Dilation (cm): 10 Effacement (%): 100 station: +1 Amniotic membrane status: Ruptured (clear at 1300. cervbical exam at 1300 by RN) Contractions Monitor mode: External Pitocin rate (mU/min): 8 Contraction frequency (min): 5 Contraction pattern: Regular Contraction intensity: Moderate Status status: Category ll Heart Rate Baseline: 120 Monitor Accelerations: Absent Monitor Decelerations: Variable Monitor Variability: Minimal Assessment and Plan Assessment: active labor Comments: Patient's blood pressure had continue to improved to 120s-140/60-70. Since FHR had remained category 1 for some time and BP improved, At 7:45 p.m. her Pitocin was restarted at 2 milliunits and gradually increased, up to 8 milliunits. At approximately 7:00 p.m., RN checked her and she was noted to be complete/1+. FHR had been category 1 with baseline 120, moderate variability and no decelerations. I was called and the patient began pushing. With pushing FHR developed severe variable deceleration, but with good recovery. She only pushed approximately 20 minutes. Plan: Completely dilated. She began pushing and progressed to a vaginal delivery.
[2020-01-07 23:48] LABS: Alanine Aminotransferase 49 IU/L (<35); Albumin 2.9 g/dL (3.5-5.0); Albumin Globulin Ratio 0.9 (1.0-2.8); Alkaline Phosphatase 191 U/L (38-126); Aspartate Aminotransferase 57 IU/L (14-36); BUN Creatinine Ratio 12.9 (6-22); Bilirubin Total 0.6 mg/dL (0.2-1.3); Blood Urea Nitrogen 11 mg/dL (7-17); Calcium 7.6 mg/dL (8.4-10.2); Carbon Dioxide 22 mmol/L (22-32); Chloride 103 mmol/L (98-107); Estimated Glomerular Filt Rate > 60.0 mL/min (>60); Globulin 3.3 g/dL (1.7-4.1); Glucose 102 mg/dL (70-100); HEMOLYSIS < 15 (0-50); Potassium 4.9 mmol/L (3.4-5.1); Sodium 132 mmol/L (137-145); Total Protein 6.2 g/dL (6.3-8.2)
--- NOTE | 2020-01-07 23:56 | P.PCNOB_ITS ---
Events: Pre-Eclampsia and Labor Induction Labor & Delivery Delivery date: 01/07/20 Intrapartal events: Bleeding (A few minutes after the placenta delivered she gave a heavy gush of blood, which quickly ceased with the uterine massage. IV Pitocin rate increased, given misoprostol 1000 mcg per rectum, and bleeding remained normal.) Cervical ripening method: per misoprostal protocol Induction method: per pitocin protocol Delivery monitor: external FHT Route of delivery: L&D Laceration Description: Periurethral - 2nd Degree (Left side, repaired with for 4-0 chromic) and Perineal - 2nd Degree (Her repaired with 3-0 chromic) Delivery repair: chromic Estimated blood loss (mL): 800 Anesthesia type: Epidural Narrative: She progressed to completely dilated. She pushed approximately 20 minutes and delivered the vertex from the OA position over an intact perineum in controlled fashion. No nuchal cord was present. Anterior followed by posterior shoulder were delivered without difficulty with the patient pushing, followed by the remainder of the body. The was placed on the maternal abdomen, cried spontaneously and became vigorous. Delayed cord clamping and cutting was performed 1 minutes after delivery. The placenta delivered spontaneously approximately 15 minutes later. The patient felt some cramping and naturally bear down on her own and placenta became visible and was delivered. On inspection there was a 2nd degree perineal laceration which extended to her right of midline, which was repaired in the usual fashion using 3 0 chromic. There was a second-degree distal vaginal laceration on her left side, which extended just through the medial labia. This was repaired using 3-0 chromic. She also had a small second-degree left periurethral laceration which was bleeding. This was reapproximated with to sutures of 4 0 chromic. Approximately 15 mL of 1% lidocaine was used as local anesthesia in all the areas for the repair. The perineal repair had been started while awaiting the placenta. A few minutes after delivery of the placenta, she had a heavy gush of blood which quickly ceased with uterine massage. The IV Pitocin rate was increased to 999 mL/hour and misoprostol 100 mcg was given per rectum. I continued massage for few minutes to help keep the uterus contracted well giving time for the medication to absorb. After stopping her bleeding continued to remain normal, light. She did not have any recurrent heavy bleeding. After she was cleaned up from the delivery, when her head was elevated some for the patient felt lightheaded, became pale. Her head was placed back down. BP was checked and was 70/50s. Bolus of LR 1000 mL was given, BP improved and she felt better. Stat CBC, PT, PTT, Mg+ level was sent. She was also typed and crossed for 2 units blood to hold. Her hemoglobin returned as 10.1, PT/PTT normal. She continued to do well after the IV fluid bolus, feeling well and BP improved. She was left to recover with the baby in the room in good condition. Lochia remained normal. Baby boy delivered at 2119 weighing 7 lb 1 oz, Apgars 9 and 9. [place] Baby 1: Infant gender: Male Presentation: vertex position: Right Occiput Anterior Placenta delivery description: Spontaneous and Normal Configuration cord vessel description: 3 Vessels score (1 min): 9 score (5 min): 9 Plan for aftercare: Will continue the magnesium sulfate until at least 24 hours after delivery.
[2020-01-08] MEDS: MAGNESIUM SULFATE 20 GM/500 ML IV.SOLN IV ×2 (03:56→17:47)
--- NOTE | 2020-01-08 07:05 | P.PNOB_ITS ---
Subjective - OB Subjective Patient comments: other (Becomes lightheaded earlier with sitting, better sitting now but lightheaded with standing. No other problems) baby status: doing well [place] feeding status: exclusively breast feeding Narrative: Feels lightheaded when sits up or stands. No other problems. Lochia has been normal. No headache, scotoma, nausea or abdominal pain Date Patient Seen: 01/08/20 Time Patient Seen: 06:50 Interval history: At 1:00 a.m., with sitting the patient up she again had an episode of feeling ringing in her ears, lightheaded. BP 88/47, improved with lying her back down. She slept a few hours overnight. With sitting at edge of bed now, she only felt a little lightheaded. BP remained 110/50s, same as when supine. However with standing she then felt ringing in her ears and lightheaded. Layer back down. After few minutes repeat BP lying down 112/58, pulse 90. No other problems. Lochia has been normal. No headache, scotoma, nausea or abdominal pain Exam Vital Signs (past 8 hours): Afebrile BP 112/58, pulse 90 Narrative Exam Narrative: General: With sitting or standing, becomes pale in appearance, improves and otherwise well-appearing in semi recumbent position Abdomen gravid, nontender. Fundus U -3, nontender, firm Extremities 1+ pedal edema. Right knee with wrap and gauze over sutured area DTR 1+ biceps Objective Labs Result Diagrams: 01/07/20 22:42 01/07/20 22:42 Labs: Laboratory Results - last 24 hr 01/05/20 01/07/20 01/07/20 20:30 08:36 08:36 WBC 9.8 RBC 4.44 Hgb 11.9 L Hct 36.3 MCV 81.8 MCH 26.8 MCHC 32.7 RDW 15.8 H Plt Count 216 Neut % (Auto) 68.7 Lymph % (Auto) 21.2 L [place] % (Auto) 8.0 Eos % (Auto) 1.6 L Baso % (Auto) 0.5 Neut # (Auto) 6700 Lymph # (Auto) 2100 [place] # (Auto) 800 Eos # (Auto) 200 Baso # (Auto) 100 PT INR APTT Sodium 134 L Potassium 4.1 Chloride 106 Carbon Dioxide 21 L BUN 12 Creatinine 0.74 Estimated GFR > 60.0 BUN/Creatinine Ratio 16.2 Glucose 91 Calcium 8.4 Magnesium 6.0 H* Total Bilirubin 0.6 AST 67 H ALT 58 H Alkaline Phosphatase 230 H Total Protein 7.1 Albumin 3.5 Globulin 3.6 Albumin/Globulin Ratio 1.0 Blood Type A Positive Antibody Screen Negative Crossmatch See Detail 01/07/20 01/07/20 01/07/20 22:42 22:42 22:42 WBC 16.8 H D RBC 3.78 L Hgb 10.1 L Hct 31.3 L MCV 82.8 MCH 26.7 MCHC 32.3 RDW 16.1 H Plt Count 219 Neut % (Auto) Lymph % (Auto) [place] % (Auto) Eos % (Auto) Baso % (Auto) Neut # (Auto) Lymph # (Auto) [place] # (Auto) Eos # (Auto) Baso # (Auto) PT 10.2 INR 0.9 APTT 28 Sodium 132 L Potassium 4.9 Chloride 103 Carbon Dioxide 22 BUN 11 Creatinine 0.85 Estimated GFR > 60.0 BUN/Creatinine Ratio 12.9 Glucose 102 H Calcium 7.6 L Magnesium Total Bilirubin 0.6 AST 57 H ALT 49 H Alkaline Phosphatase 191 H Total Protein 6.2 L Albumin 2.9 L Globulin 3.3 Albumin/Globulin Ratio 0.9 L Blood Type Antibody Screen Crossmatch 01/07/20 22:42 WBC RBC Hgb Hct MCV MCH MCHC RDW Plt Count Neut % (Auto) Lymph % (Auto) [place] % (Auto) Eos % (Auto) Baso % (Auto) Neut # (Auto) Lymph # (Auto) [place] # (Auto) Eos # (Auto) Baso # (Auto) PT INR APTT Sodium Potassium Chloride Carbon Dioxide BUN Creatinine Estimated GFR BUN/Creatinine Ratio Glucose Calcium Magnesium 7.2 H* Total Bilirubin AST ALT Alkaline Phosphatase Total Protein Albumin Globulin Albumin/Globulin Ratio Blood Type Antibody Screen Crossmatch Assessment & Plan Assessment and Plan (1) Preeclampsia: Problem details: day 1/2. Decreased BP with sitting upright and standing, symptomatic. Likely symptomatic with her blood loss and possibly magnesium may be making her more sensitive. Her hemoglobin was not significantly low last night, so do not expect that she would need blood today. Anticipate H&H will be lower after ?liberation, but do not expect that it would be very low, however await repeat CBC this a.m. Await a.m. labs. Will decrease her magnesium sulfate dose to 1.5 g/hr. Will plan on likely shutting this off few hours early at around 6:00 p.m, 21 hours after delivery Advise rest in bed today. Will leave Doll catheter in place for now. Status: Acute Current Visit: Yes Time Spent With Patient Time: Total time spent is greater than 50% in coordination of care (as documented) at patient's floor/unit and/or counseling patient: Time with patient: 15-24 minutes
[2020-01-08 08:18] LABS: Add Manual Diff / Slide Review NO; Basophils Absolute Auto 0 /uL (0-100); Basophils Percent Auto 0.2 % (0-2); Eosinophils Absolute Auto 0 /uL (0-450); Eosinophils Percent Auto 0.3 % (2-4); Hematocrit 25.7 % (36-46); Hemoglobin 8.4 g/dL (12.0-16.0); Lymphocytes Absolute Auto 2200 /uL (1100-4500); Lymphocytes Percent Auto 15.4 % (25-40); Mean Corpuscular HGB Conc 32.6 % (30-36); Mean Corpuscular Volume 82.7 fL (80-100); Monocytes Absolute Auto 1500 /uL (0-900); Neutrophils Absolute Auto 10800 /uL (1500-7000); Neutrophils Percent Auto 74.1 % (50-75); Platelet Count 207 X10^3/uL (150-400); Red Blood Cell Count 3.11 X10^6/uL (4.0-5.2); Red Cell Distribution Width 15.8 % (11.6-14.8); White Blood Cell Count 14.5 X10^3/uL (4.5-11.0)
[2020-01-08 08:43] LABS: Alanine Aminotransferase 42 IU/L (<35); Albumin 2.4 g/dL (3.5-5.0); Albumin Globulin Ratio 0.9 (1.0-2.8); Alkaline Phosphatase 150 U/L (38-126); Aspartate Aminotransferase 50 IU/L (14-36); BUN Creatinine Ratio 13.2 (6-22); Bilirubin Total 0.3 mg/dL (0.2-1.3); Blood Urea Nitrogen 12 mg/dL (7-17); Calcium 6.8 mg/dL (8.4-10.2); Carbon Dioxide 22 mmol/L (22-32); Chloride 105 mmol/L (98-107); Estimated Glomerular Filt Rate > 60.0 mL/min (>60); Globulin 2.7 g/dL (1.7-4.1); Glucose 112 mg/dL (70-100); HEMOLYSIS < 15 (0-50); Potassium 5.1 mmol/L (3.4-5.1); Sodium 133 mmol/L (137-145); Total Protein 5.1 g/dL (6.3-8.2)
[2020-01-08 08:46] LABS: Magnesium 6.5 mg/dL (1.6-2.3)
[2020-01-08 11:52] VITALS: TEMP 38
[2020-01-08] MEDS: ACETAMINOPHEN 325 MG TABLET 650 MG PO (11:52)
[2020-01-08] MEDS: IRON SUCROSE 200 MG in SODIUM CHLORIDE 0.9% 100 ML 220 ML IV (19:52)
--- NOTE | 2020-01-09 08:15 | P.PNOB_ITS ---
Subjective - OB Subjective Patient comments: no complaints and tolerating diet [place] baby status: doing well feeding status: exclusively breast feeding Narrative: Summer reports she feels a little better today. Ambulating to the ba throom without problems. Does feel a little more winded with ambulating but no significant shortness of breath. Denies chest pain. Denies lightheadedness. Lochia has been normal, light Date Patient Seen: 01/09/20 Time Patient Seen: 08:15 Interval history: Her magnesium sulfate was discontinued at 7:00 p.m. yesterday. Has been saline locked overnight without any IV fluids, drinking fine on her own. She received an iron infusion last night. Exam Vital Signs (past 8 hours): .Afebrile BP 132/73 Narrative Exam Narrative: General: Well-appearing female Fundus: U-1, firm, nontender Extremities trace edema, decreasing. Right knee with sutures intact. There is some redness right around the sutures with some bruising, appears normal healing with the sutures. There is some minimal pink extending inferiorly, bottom portion of this was marked. Only minimal pain, some appears bruising but will observe for any worsening. No signs of infection currently Objective Labs Result Diagrams: 01/08/20 08:09 01/08/20 08:09 Labs: Laboratory Results - last 24 hr 01/05/20 01/08/20 01/08/20 20:30 08:09 08:09 WBC 14.5 H RBC 3.11 L Hgb 8.4 L Hct 25.7 L MCV 82.7 MCH 27.0 MCHC 32.6 RDW 15.8 H Plt Count 207 Neut % (Auto) 74.1 Lymph % (Auto) 15.4 L [place] % (Auto) 10.0 Eos % (Auto) 0.3 L Baso % (Auto) 0.2 Neut # (Auto) 20024 H Lymph # (Auto) 2200 [place] # (Auto) 1500 H Eos # (Auto) 0 Baso # (Auto) 0 Sodium 133 L Potassium 5.1 Chloride 105 Carbon Dioxide 22 BUN 12 Creatinine 0.91 Estimated GFR > 60.0 BUN/Creatinine Ratio 13.2 Glucose 112 H Calcium 6.8 L Magnesium 6.5 H* Total Bilirubin 0.3 AST 50 H ALT 42 H Alkaline Phosphatase 150 H Total Protein 5.1 L Albumin 2.4 L Globulin 2.7 Albumin/Globulin Ratio 0.9 L Crossmatch See Detail Assessment & Plan Assessment and Plan (1) Preeclampsia: Problem details: BP currently controlled off the labetalol. Observe BP as she increases ambulation today. Status: Acute Current Visit: Yes (2) hemorrhage: Problem details: Immediately controlled, but she did have a significant hemoglobin dropped for her, improved after IV hydration shortly . However symptomatic initially with sitting, then later only with standing. Now improved, ambulating slowly without difficulty. Status: Acute Current Visit: Yes (3) Anemia due to blood loss, acute: Problem details: She received IV iron yesterday and will receive an additional dose today. To be discharged on oral iron. Reviewed patient and signed at with Dr. Man her provider who is on floor now. Status: Acute Current Visit: Yes Time Spent With Patient Time: Total time spent is greater than 50% in coordination of care (as documented) at patient's floor/unit and/or counseling patient: Time with patient: 15-24 minutes
[2020-01-09] MEDS: IRON SUCROSE 200 MG in SODIUM CHLORIDE 0.9% 100 ML 220 ML IV (09:22)
[2020-01-09 09:50] VITALS: TEMP 36.9
[2020-01-09] MEDS: ACETAMINOPHEN 325 MG TABLET 650 MG PO ×2 (09:50→19:14)
[2020-01-09 19:14] VITALS: TEMP 36.9
[2020-01-10 08:24] VITALS: TEMP 37.9
[2020-01-10] MEDS: ACETAMINOPHEN 325 MG TABLET 650 MG PO (08:24)
--- NOTE | 2020-01-10 11:34 | P.DS_ITS ---
History of Present Illness History of Present Illness Chief complaint: maternity Discharge Providers Provider Date of admission: 01/05/20 16:21 Discharge Date: 01/10/20 Primary care physician: Chris Man MD Discharge provider: Chris Man MD Summary Hospital Course Discharge Diagnosis: 24-year-old G1 now para 1 had term Preeclampsia with severe features Hypertension Morbid obesity Right knee laceration Hospital Course: 24-year-old G1 now para 1 at 39 weeks it was admitted the [facility] after a fall and injuring her right knee which required repair in the emergency room patient on the emergency room was found to have elevated blood pressure she was transferred to the OB floor. Patient was at 39 weeks gestational age. Please see admission note for complete details. After admission to the hospital there was concerned about preeclampsia with moderate abnormalities to blood testing urine and blood pressure patient remained asymptomatic. She was started on labetalol. She had a trial of labor with Pitocin augmentation. Patient had improvement of her blood pressure starti ng on labetalol. With Pitocin. Patient had good contractions but no cervical change. After 6-8 hours of Pitocin without cervical change. The Pitocin was stopped. Given time for washout. And patient was then started with cervical ripening with Cytotec. During the 1st 6-8 hours blood pressures were controlled with IV and oral labetalol. At that time care was turned over. To Dr. John Howard. Patient received a few courses of Cytotec. Was started on magnesium. Patient did well during that standpoint and had good progression after Cytotec magnesium epidural and blood pressure control. Patient progressed nicely to complete and pushed out vaginally a viable with Apgars 9 and 9. After the delivery. There was some mild bleeding which was to be expected after magnesium and prolonged labor time. She was given Cytotec rectally. Her hemoglobin dropped to 8.8. After the 1st 24 hours of continued magnesium. Patient's blood pressure is stabilized. For the 1st day she has some mild dizziness with ambulation. By the 2nd day she was ambulating well tolerating her diet her dizziness improved she had no headaches. She was breast-feeding well blood pressures were moderately elevated. On discharge the time of discharge day 3. Patient's vital signs showed mild elevation of blood pressure which was controlled with labetalol. Patient had normal urine output. Normal neurological exam and no complaints of headache dizziness lightheadedness. She was able to shower she was eating well bowel movements and urination were working normal vaginal bleeding as to be expected and breast-feeding was going well. Exam Vital Signs (past 8 hours): - 01/10/20 08:24 Temperature 100.2 F H Narrative Exam Narrative: General: Alert no apparent distress. Affect is appropriate. Benita it is uncomfortable. HEENT: Neck is supple without lymphadenopathy pupils equal round and reactive. Cardio: S1-S2 regular rate and rhythm. Respiratory: Lungs clear to auscultation. Abdomen: Uterus firm. Extremities: Normal deep tendon reflexes trace edema. Objective Labs Result Diagrams: 01/08/20 08:09 01/08/20 08:09 Discharge Plan Discharge Plan Patient Disposition: Home Discharge comment: Follow-up 6 weeks. Return to clinic if fever excessive vaginal bleeding increasing redness to right knee. Discharge orders & Medications Prescriptions: New ibuprofen [IBU] 600 mg tablet 600 mg PO TID PRN (Reason: pain) Qty: 30 RF: 0 docusate sodium [Colace] 100 mg capsule 100 mg PO DAILY Qty: 10 RF: 0 labetalol 200 mg tablet 200 mg PO BID Qty: 60 RF: 1 Continued prenat.vits,erwin,[id number] Tablet 1 tab PO DAILY RF: 0 Follow up/Referrals: Chris Man MD [Primary Care Provider] - Visit Report/Discharge Packet Visit Report Forms: Patient Portal/API, Stroke Signs & Symptoms Discharge Data Primary Care Provider: Chris Man
[2020-01-10 12:28] VITALS: BP 154/87; PULSE 81; RESP 18; TEMP 36.8
== END 2020-01-10 14:00 | disposition home or self-care (01) | DRG 560 ==
PROVIDERS: Obstetrics & Gynecology; Admitting Provider Family Medicine; PCP Family Medicine; Referring Provider Family Medicine; Visit Provider Family Medicine
DX: O14.14 Severe pre-eclampsia complicating childbirth (principal); D62 Acute posthemorrhagic anemia; E66.01 Morbid (severe) obesity due to excess calories; Z3A.39 39 weeks gestation of pregnancy; Z37.0 Single live birth; O71.82 Other specified trauma to perineum and vulva; O70.1 Second degree perineal laceration during delivery; O99.02 Anemia complicating childbirth; S81.011A Laceration without foreign body, right knee, initial encounter; W19.XXXA Unspecified fall, initial encounter
CPT/HCPCS: 01967; 36415; 59050; 59200; 59409; 80053; 82043; 82570; 83735; 84450; 84550; 85025; 85027; 85610; 85730; 86850; 86900; 86901; 99284; G0379; J1756; J2590; J3010; J3475

== ENCOUNTER → 2020-10-16 11:20 | Outpatient (CLI) | payer OTHER, MEDICAID, SELFPAY | PROVIDERS: PCP Family Medicine; Visit Provider Family Medicine | DX: N89.8 Other specified noninflammatory disorders of vagina (principal) | CPT/HCPCS: 87210 ==